=== PATIENT | male | born 1970 | race Caucasian/White ===

== ENCOUNTER 2022-04-08 05:19 | Inpatient (IN) | payer MEDICARE ==
[2022-04-04 10:22] LABS: BASOPHILS % 0.5 % (0.0-1.0); EOSINOPHILS # (AUTO) 0.1 (0.0-0.4); EOSINOPHILS % 2.1 % (0.0-6.0); HEMATOCRIT 39.1 % (38.2-49.6); HEMOGLOBIN 12.5 g/dL (14.0-18.0); LYMPHOCYTES # (AUTO) 0.6 (1.0-3.2); LYMPHOCYTES % 13.1 % (18.0-39.1); MEAN CORPUSCULAR HEMOGLOBIN 34.5 pg (28-32); MONOCYTES # (AUTO) 0.3 (0.2-0.8); MONOCYTES % 7.6 % (4.4-11.3); NEUTROPHILS # (AUTO) 3.2 (2.1-6.9); NEUTROPHILS % 76.2 % (38.7-80.0); PLATELET COUNT 192 x10e3/uL (140-360); RED BLOOD COUNT 3.62 x10e6/uL (4.3-5.7); RED CELL DISTRIBUTION WIDTH 16.4 % (11.7-14.4)
[2022-04-04 10:47] LABS: ANION GAP 12.1 mmol/L (8-16); CALCIUM 8.2 mg/dL (8.4-10.2); CREATININE, SERUM 1.58 mg/dL (0.72-1.25); POTASSIUM 5.1 mmol/L (3.5-5.1)
[~2022-04-08] VITALS: Ht 182.9 cm; Wt 146.3 kg
[~2022-04-08 05:19] MED LIST: AMLODIPINE BESYL5 MG PO; FARXIGA10 MG PO; MAGNESIUM OXID400 MG PO
[2022-04-08] MEDS ORDERED: CARVEDILOL12.5 MG PO (06:16)
[2022-04-08] MEDS ORDERED: NEURONTIN300 MG PO (06:17)
[2022-04-08] MEDS ORDERED: FLOMAX0.4 MG PO (06:18)
[2022-04-08] MEDS ORDERED: ROVASTATIN (06:19)
[2022-04-08] MEDS ORDERED: METFORMIN HCL500 MG PO (06:20)
[2022-04-08] MEDS ORDERED: PIOGLITAZONE HC45 MG PO (06:20)
[2022-04-08] MEDS ORDERED: GLIPIZIDE5 MG PO (06:21)
[2022-04-08] MEDS ORDERED: CLOPIDOGREL75 MG PO (06:21)
[2022-04-08] MEDS ORDERED: TRICOR145 MG PO (06:22)
[2022-04-08] MEDS ORDERED: ASPIRIN325 MG PO (06:23)
[2022-04-08] MEDS ORDERED: CEFAZOLIN SODIUM 2 GM ONE (06:43)
[2022-04-08] MEDS ORDERED: BUPIVACAINE 0.25% 30ML SDV ONE (07:25)
[2022-04-08] MEDS: SODIUM CHLORIDE 0.9% 1000ML 1,000 ML IV SCH ×2 (08:00→16:13)
[2022-04-08] MEDS ORDERED: HYDROCODONE/APAP 7.5MG-325MG 1 EA TAB PO PRN (08:00)
[2022-04-08] MEDS ORDERED: SCOPOLAMINE 1 MG PATCH TOP SCH (08:00)
[2022-04-08] MEDS ORDERED: SUGAMMADEX SODIUM 200 MG/2 ML VIAL IV ONE ×2 (09:42→10:58)
[2022-04-08] MEDS ORDERED: NALOXONE HCL INJ 0.4 MG/ML AMP ONE (09:49)
[2022-04-08] MEDS: ONDANSETRON HCL INJ 2MG/ML 2ML 2 MG/ML VIAL IV PRN ×3 (10:08→18:09)
[2022-04-08] MEDS ORDERED: ONDANSETRON HCL INJ 2MG/ML 2ML 2 MG/ML VIAL ONE ×2 (10:21→12:54)
[2022-04-08] MEDS ORDERED: METOCLOPRAMIDE HCL 10 MG/2ML VIAL ONE (10:25)
[2022-04-08] MEDS: SCOPOLAMINE 1 MG PATCH TOP SCH ×2 (10:30→13:00)
[2022-04-08] MEDS ORDERED: SCOPOLAMINE 1 MG PATCH ONE (10:44)
[2022-04-08] MEDS ORDERED: HYDROMORPHONE 2MG/ML 2 MG/ML ML ONE (10:58)
[2022-04-08] MEDS ORDERED: PROPOFOL IV EMULSION 10 MG/ML 20 ML VIAL ONE (12:54)
[2022-04-08] MEDS ORDERED: ROCURONIUM BROMIDE 10 MG/ML 5ML VIAL IV ONE (12:54)
[2022-04-08] MEDS ORDERED: LIDOCAINE HCL 2% LOCAL INJ 5 ML SDV VIAL INJ ONE (12:54)
[2022-04-08] MEDS ORDERED: POVIDONE IODINE 0.05% 0.05 % ML PO ONE (12:54)
[2022-04-08] MEDS ORDERED: SUCCINYLCHOLINE CHLORIDE 20 MG/ML 10ML VIAL ONE (12:54)
[2022-04-08] MEDS ORDERED: SEVOFLURANE INHAL SOLN 250 ML PEN BTL ONE (12:54)
[2022-04-08] MEDS ORDERED: FENTANYL CITRATE/PF 100MCG/2 ML INJ ONE (13:12)
[2022-04-08] MEDS ORDERED: MIDAZOLAM HCL 2 MG/2 ML VIAL ONE ×2 (13:12→14:10)
[2022-04-08 13:30] VITALS: BP 167/72
[2022-04-08 13:41] VITALS: BP 167/72
[2022-04-08] MEDS: Morphine 2mg Syringe 2 MG/ML SYR IV PRN ×2 (13:45→18:09)
[2022-04-08] MEDS ORDERED: WATER STERILE 10 ML VIAL ONE (14:10)
[2022-04-08] MEDS ORDERED: VECURONIUM BROMIDE FOR INJ 20 MG VIAL ONE (14:10)
[2022-04-08] MEDS ORDERED: ETOMIDATE 2 MG/ML 10 ML INJ IV ONE (14:10)
[2022-04-08 14:20] VITALS: BP 167/72
[2022-04-08 16:47] VITALS: BP 158/65
[2022-04-08] MEDS: CARVEDILOL 12.5 MG TAB PO SCH (17:49)
[2022-04-08 20:00] VITALS: BP_SYST 156; BP_SYST 89; BP_DIAS 40; BP_DIAS 65
[2022-04-08] MEDS: GABAPENTIN 300 MG CAP PO SCH (20:50)
[2022-04-08] MEDS: ENOXAPARIN SOD INJ 40 MG/0.4 ML SYR SC SCH (20:51)
[2022-04-08 21:00] VITALS: BP 156/65
[2022-04-09] VITALS (7 sets, daily range): BP systolic 113–151; BP diastolic 48–73
[2022-04-09] MEDS: SODIUM CHLORIDE 0.9% 1000ML 1,000 ML IV SCH
[2022-04-09] MEDS ORDERED: FUROSEMIDE INJ 10 MG/ML 4 ML VIAL IV ONE ×3 (06:45→12:00)
[2022-04-09 07:28] LABS: BASOPHILS % 0.5 % (0.0-1.0); EOSINOPHILS % 0.1 % (0.0-6.0); HEMATOCRIT 50.9 % (38.2-49.6); HEMOGLOBIN 14.7 g/dL (14.0-18.0); LYMPHOCYTES # (AUTO) 0.3 (1.0-3.2); MEAN CORPUSCULAR HGB CONC 28.9 g/dL (31-35); MEAN CORPUSCULAR VOLUME 110.9 fL (81-99); MONOCYTES # (AUTO) 0.7 (0.2-0.8); MONOCYTES % 8.7 % (4.4-11.3); NEUTROPHILS # (AUTO) 6.5 (2.1-6.9); NEUTROPHILS % 86.3 % (38.7-80.0); RED BLOOD COUNT 4.59 x10e6/uL (4.3-5.7); RED CELL DISTRIBUTION WIDTH 15.3 % (11.7-14.4)
[2022-04-09 07:32] LABS: PLATELET COUNT 254 x10e3/uL (140-360)
[2022-04-09 07:47] LABS: ALBUMIN 2.8 g/dL (3.5-5.0); ALBUMIN/GLOBULIN RATIO 0.7 (0.8-2.0); ANION GAP 16.8 mmol/L (8-16); CALCIUM 8.5 mg/dL (8.4-10.2); CREATININE, SERUM 2.07 mg/dL (0.72-1.25); MAGNESIUM 2.2 MG/DL (1.3-2.1); PHOSPHORUS 6.3 MG/DL (2.3-4.7)
[2022-04-09 08:05] LABS: POTASSIUM 6.8 mmol/L (3.5-5.1)
[2022-04-09] MEDS: ENOXAPARIN SOD INJ 40 MG/0.4 ML SYR SC SCH (08:23)
[2022-04-09 08:42] LABS: PLATELET ESTIMATE ADEQUATE; PLATELET MORPHOLOGY COMMENT NORMAL; RBC MORPHOLOGY COMMENT NORMAL
[2022-04-09 08:43] LABS: POLYCHROMASIA FEW
[2022-04-09] MEDS ORDERED: CLOPIDOGREL BISULFATE 75 MG TAB PO SCH (09:00)
[2022-04-09] MEDS: AMLODIPINE BESYLATE 5 MG TAB PO SCH (09:47)
[2022-04-09] MEDS: FENOFIBRATE 145 MG TAB PO SCH (09:47)
[2022-04-09] MEDS: CARVEDILOL 12.5 MG TAB PO SCH ×2 (09:47→17:00)
[2022-04-09] MEDS: GABAPENTIN 300 MG CAP PO SCH (09:48)
[2022-04-09] MEDS ORDERED: DEXTROSE 50% SYRINGE 50 ML IV PRN (11:45)
[2022-04-09 12:42] LABS: ABG HCO3 24 mmol/L (22-26); ABG PCO2 76 mmHg (35-45); ABG PO2 121 mmHg (80-105); ABG TCO2 26
[2022-04-09] MEDS ORDERED: NOREPINEPHRINE 8 MG/D5W 250 ML 250 ML IV SCH (13:30)
[2022-04-09] MEDS ORDERED: ALBUMIN 25% 25GM 100ML 0.25 GM/ML BTL IV ONE (13:30)
[2022-04-09] MEDS ORDERED: ALBUMIN 25% 25GM 100ML 0 ML ONE (13:34)
[2022-04-09] MEDS ORDERED: NOREPINEPHRINE 8 MG/D5W 250 ML 250 ML ONE (13:34)
[2022-04-09] MEDS ORDERED: ROCURONIUM BROMIDE 0 ML IV ONE (13:37)
[2022-04-09] MEDS ORDERED: ALBUMIN 25% 25GM 100ML 100 ML IV ONE (13:45)
[2022-04-09] MEDS: PROPOFOL IV EMULSION 10MG/ML 100 ML IV PRN ×4 (13:53→23:12)
[2022-04-09] MEDS ORDERED: PROPOFOL IV EMULSION 10MG/ML 100 ML IV PRN (14:00)
[2022-04-09] MEDS ORDERED: SODIUM CHLORIDE 0.9% 1000ML 1,000 ML ONE (14:19)
[2022-04-09] MEDS ORDERED: CALCIUM CHLORIDE 10% 1.36 MEQ/ML 10ML SYR IV STA (15:33)
[2022-04-09] MEDS ORDERED: DEXTROSE 50% SYRINGE 50 ML IV ONE (15:45)
[2022-04-09] MEDS ORDERED: INSULIN REGULAR, HUMAN 100 UNIT/1 ML IV ONE (15:45)
[2022-04-09 16:03] LABS: ABG PCO2 75 mmHg (35-45); ABG PH 7.15 (7.35-7.45); ABG PO2 99 mmHg (80-105)
[2022-04-09 16:04] LABS: ABG HCO3 26 mmol/L (22-26); ABG TCO2 28
[2022-04-09 16:05] LABS: ABG PH 7.25 (7.35-7.45)
[2022-04-09 16:06] LABS: ABG HCO3 22 mmol/L (22-26); ABG PCO2 49 mmHg (35-45); ABG PO2 103 mmHg (80-105); ABG TCO2 23
[2022-04-09] MEDS: INSULIN REGULAR, HUMAN 100 UNIT/1 ML SQ SCH ×2 (16:30→21:00)
[2022-04-09 17:14] LABS: ABG HCO3 20 mmol/L (22-26); ABG PCO2 46 mmHg (35-45); ABG PH 7.25 (7.35-7.45); ABG PO2 91 mmHg (80-105); ABG TCO2 22
[2022-04-09 17:23] LABS: COLOR,URINE YELLOW (YELLOW); KETONES,URINE 2+ (NEGATIVE); LEUKOCYTE ESTERASE ,URINE NEGATIVE (NEGATIVE); NITRITE,URINE NEGATIVE (NEGATIVE); PROTEIN,URINE DIPSTICK >=300 (NEGATIVE); URINE UROBILINOGEN 0.2 mg/dL (0.2 - 1)
[2022-04-09 17:24] LABS: CLARITY,URINE SL CLOUDY (CLEAR)
[2022-04-09 17:30] LABS: BACTERIA,URINE MODERATE /HPF; EPITHELIAL CELLS,URINE FEW /LPF; HYALINE CASTS 0-1 (0-1); RBC,URINE 21-50 /HPF (0-5); RENAL EPITHELIAL CELLS,URINE FEW; TRANSITIONAL EPI CELLS,URINE MODERATE
[2022-04-09 17:31] LABS: AMORPHOUS SEDIMENT,URINE MANY (FEW); MUCUS,URINE FEW (RARE)
[2022-04-09] MEDS: HEPARIN SOD (PORCINE) 5,000 UNIT/ML VIAL SC SCH (20:59)
[2022-04-09] MEDS ORDERED: FUROSEMIDE INJ 10 MG/ML 4 ML VIAL IV SCH (21:00)
[2022-04-09] MEDS: MIDAZOLAM HCL 2 MG/2 ML VIAL IV PRN (23:02)
[2022-04-10] VITALS (32 sets, daily range): BP systolic 83–188; BP diastolic 39–69
[2022-04-10] MEDS: PROPOFOL IV EMULSION 10MG/ML 100 ML IV PRN ×7 (02:22→23:41)
[2022-04-10] MEDS: MIDAZOLAM HCL 2 MG/2 ML VIAL IV PRN ×4 (05:10→12:15)
[2022-04-10 06:31] LABS: BASOPHILS % 0.2 % (0.0-1.0); EOSINOPHILS % 0.3 % (0.0-6.0); HEMATOCRIT 37.6 % (38.2-49.6); HEMOGLOBIN 11.4 g/dL (14.0-18.0); LYMPHOCYTES # (AUTO) 0.4 (1.0-3.2); LYMPHOCYTES % 7.4 % (18.0-39.1); MEAN CORPUSCULAR HEMOGLOBIN 30.8 pg (28-32); MEAN CORPUSCULAR HGB CONC 30.3 g/dL (31-35); MEAN CORPUSCULAR VOLUME 101.6 fL (81-99); MONOCYTES # (AUTO) 0.5 (0.2-0.8); MONOCYTES % 8.7 % (4.4-11.3); NEUTROPHILS % 83.2 % (38.7-80.0); PLATELET COUNT 222 x10e3/uL (140-360); RED CELL DISTRIBUTION WIDTH 15.2 % (11.7-14.4)
[2022-04-10 07:02] LABS: ALBUMIN 2.1 g/dL (3.5-5.0); ALBUMIN/GLOBULIN RATIO 0.6 (0.8-2.0); ANION GAP 19.6 mmol/L (8-16); CALCIUM 8.5 mg/dL (8.4-10.2); CREATININE, SERUM 2.41 mg/dL (0.72-1.25); POTASSIUM 4.6 mmol/L (3.5-5.1)
[2022-04-10] MEDS: INSULIN REGULAR, HUMAN 100 UNIT/1 ML SQ SCH ×4 (07:32→21:00)
[2022-04-10] MEDS: HEPARIN SOD (PORCINE) 5,000 UNIT/ML VIAL SC SCH ×2 (08:11→21:18)
[2022-04-10] MEDS: CARVEDILOL 12.5 MG TAB PO SCH ×2 (09:00→17:00)
[2022-04-10] MEDS: CLOPIDOGREL BISULFATE 75 MG TAB PO SCH (09:00)
[2022-04-10] MEDS: FENOFIBRATE 145 MG TAB PO SCH (09:00)
[2022-04-10] MEDS: AMLODIPINE BESYLATE 5 MG TAB PO SCH (09:00)
[2022-04-10 09:04] LABS: ABG HCO3 19 mmol/L (22-26); ABG PCO2 32 mmHg (35-45); ABG PH 7.39 (7.35-7.45); ABG PO2 193 mmHg (80-105)
[2022-04-10 09:05] LABS: ABG TCO2 20
[2022-04-10] MEDS ORDERED: Vancomycin IV 1 GM in SODIUM CHLORIDE 0.9% 250ML 250 ML IV ONE (10:00)
[2022-04-10] MEDS ORDERED: SODIUM CHLORIDE 0.9% 250ML 250 ML ONE (10:52)
[2022-04-10] MEDS ORDERED: ALBUMIN 25% 25GM 100ML 200 ML ONE (11:27)
[2022-04-10] MEDS ORDERED: ALBUMIN 25% 25GM 100ML 0.25 GM/ML BTL IV ONE (12:00)
[2022-04-10] MEDS: FENTANYL 2000MCG/NS 250 250 ML IV PRN (12:16)
[2022-04-10] MEDS ORDERED: ALBUMIN 25% 25GM 100ML 200 ML IV ONE (12:30)
[2022-04-10 13:18] LABS: ABG HCO3 21 mmol/L (22-26); ABG PCO2 35 mmHg (35-45); ABG PH 7.38 (7.35-7.45); ABG PO2 104 mmHg (80-105); ABG TCO2 22
[2022-04-10 15:18] LABS: ABG PH 7.31 (7.35-7.45)
[2022-04-10 15:19] LABS: ABG HCO3 22 mmol/L (22-26); ABG PCO2 45 mmHg (35-45); ABG PO2 75 mmHg (80-105); ABG TCO2 24
[2022-04-10] MEDS ORDERED: LACTATED RINGER'S 1,000 ML INJ ONE ×2 (17:00→18:30)
[2022-04-10] MEDS ORDERED: LACTATED RINGER'S 1,000 ML ONE (17:25)
[2022-04-11] VITALS (92 sets, daily range): BP systolic 115–197; BP diastolic 51–100
[2022-04-11] MEDS: PROPOFOL IV EMULSION 10MG/ML 100 ML IV PRN ×8 (03:05→22:58)
[2022-04-11 06:37] LABS: BASOPHILS % 0.6 % (0.0-1.0); EOSINOPHILS # (AUTO) 0.2 (0.0-0.4); EOSINOPHILS % 4.2 % (0.0-6.0); HEMATOCRIT 37.1 % (38.2-49.6); HEMOGLOBIN 11.1 g/dL (14.0-18.0); LYMPHOCYTES # (AUTO) 0.4 (1.0-3.2); LYMPHOCYTES % 11.4 % (18.0-39.1); MEAN CORPUSCULAR HGB CONC 29.9 g/dL (31-35); MEAN CORPUSCULAR VOLUME 103.6 fL (81-99); MONOCYTES # (AUTO) 0.4 (0.2-0.8); MONOCYTES % 11.1 % (4.4-11.3); NEUTROPHILS # (AUTO) 2.6 (2.1-6.9); NEUTROPHILS % 72.4 % (38.7-80.0); PLATELET COUNT 208 x10e3/uL (140-360); RED BLOOD COUNT 3.58 x10e6/uL (4.3-5.7); RED CELL DISTRIBUTION WIDTH 15.5 % (11.7-14.4)
[2022-04-11 07:10] LABS: ALBUMIN 2.3 g/dL (3.5-5.0); ALBUMIN/GLOBULIN RATIO 0.8 (0.8-2.0); ANION GAP 19.3 mmol/L (8-16); CALCIUM 8.2 mg/dL (8.4-10.2); CREATININE, SERUM 2.35 mg/dL (0.72-1.25); POTASSIUM 4.3 mmol/L (3.5-5.1)
[2022-04-11] MEDS ORDERED: Vancomycin IV 1 GM in SODIUM CHLORIDE 0.9% 250ML 250 ML IV ONE (07:15)
[2022-04-11] MEDS: INSULIN REGULAR, HUMAN 100 UNIT/1 ML SQ SCH ×4 (07:30→21:00)
[2022-04-11] MEDS: FENTANYL 2000MCG/NS 250 250 ML IV PRN (07:35)
[2022-04-11 08:16] LABS: ABG HCO3 21 mmol/L (22-26); ABG PCO2 47 mmHg (35-45); ABG PH 7.27 (7.35-7.45); ABG PO2 156 mmHg (80-105); ABG TCO2 23
[2022-04-11] MEDS: HEPARIN SOD (PORCINE) 5,000 UNIT/ML VIAL SC SCH ×2 (08:35→21:11)
[2022-04-11] MEDS: AMLODIPINE BESYLATE 5 MG TAB PO SCH (09:00)
[2022-04-11] MEDS: FENOFIBRATE 145 MG TAB PO SCH (09:00)
[2022-04-11] MEDS: CARVEDILOL 12.5 MG TAB PO SCH ×2 (09:00→16:18)
[2022-04-11] MEDS: CLOPIDOGREL BISULFATE 75 MG TAB PO SCH (09:00)
[2022-04-11 09:29] LABS: ABG PCO2 37 mmHg (35-45); ABG PH 7.34 (7.35-7.45); ABG PO2 159 mmHg (80-105)
[2022-04-11 09:30] LABS: ABG HCO3 20 mmol/L (22-26); ABG TCO2 21
[2022-04-11] MEDS ORDERED: SODIUM CHLORIDE 0.9% 1000ML 1,000 ML IV ONE (11:30)
[2022-04-11] MEDS: HYDRALAZINE HCL 20 MG/ML VIAL IV PRN ×2 (13:49→23:11)
[2022-04-11 16:28] LABS: ABG HCO3 18 mmol/L (22-26); ABG PCO2 34 mmHg (35-45); ABG PH 7.33 (7.35-7.45); ABG PO2 80 mmHg (80-105); ABG TCO2 19
[2022-04-11] MEDS ORDERED: LACTATED RINGER'S 1,000 ML INJ ONE (17:45)
[2022-04-11] MEDS ORDERED: FUROSEMIDE INJ 10 MG/ML 4 ML VIAL IV ONE (18:00)
[2022-04-11] MEDS: HYDRALAZINE HCL 20 MG/ML VIAL IV SCH (21:11)
[2022-04-12] VITALS (45 sets, daily range): BP systolic 145–196; BP diastolic 47–65
[2022-04-12] MEDS: PROPOFOL IV EMULSION 10MG/ML 100 ML IV PRN ×11 (01:01→22:54)
[2022-04-12] MEDS: HYDRALAZINE HCL 20 MG/ML VIAL IV PRN ×3 (01:16→16:28)
[2022-04-12] MEDS ORDERED: LACTATED RINGER'S 1,000 ML ONE (01:21)
[2022-04-12] MEDS: MIDAZOLAM HCL 2 MG/2 ML VIAL IV PRN (01:49)
[2022-04-12] MEDS: FENTANYL 2000MCG/NS 250 250 ML IV PRN (05:47)
[2022-04-12 05:48] LABS: BASOPHILS % 0.5 % (0.0-1.0); EOSINOPHILS # (AUTO) 0.2 (0.0-0.4); EOSINOPHILS % 3.7 % (0.0-6.0); HEMATOCRIT 38.9 % (38.2-49.6); HEMOGLOBIN 11.5 g/dL (14.0-18.0); LYMPHOCYTES # (AUTO) 0.3 (1.0-3.2); LYMPHOCYTES % 7.9 % (18.0-39.1); MEAN CORPUSCULAR HEMOGLOBIN 31.2 pg (28-32); MEAN CORPUSCULAR HGB CONC 29.6 g/dL (31-35); MEAN CORPUSCULAR VOLUME 105.4 fL (81-99); MONOCYTES # (AUTO) 0.5 (0.2-0.8); MONOCYTES % 11.3 % (4.4-11.3); NEUTROPHILS # (AUTO) 3.1 (2.1-6.9); NEUTROPHILS % 76.4 % (38.7-80.0); PLATELET COUNT 220 x10e3/uL (140-360); RED BLOOD COUNT 3.69 x10e6/uL (4.3-5.7); RED CELL DISTRIBUTION WIDTH 15.4 % (11.7-14.4)
[2022-04-12] MEDS: HYDRALAZINE HCL 20 MG/ML VIAL IV SCH ×3 (05:48→21:08)
[2022-04-12 06:15] LABS: ALBUMIN 2.2 g/dL (3.5-5.0); ALBUMIN/GLOBULIN RATIO 0.6 (0.8-2.0); ANION GAP 22.2 mmol/L (8-16); CALCIUM 8.4 mg/dL (8.4-10.2); CREATININE, SERUM 1.79 mg/dL (0.72-1.25); POTASSIUM 4.2 mmol/L (3.5-5.1)
[2022-04-12] MEDS: INSULIN REGULAR, HUMAN 100 UNIT/1 ML SQ SCH ×4 (06:56→21:10)
[2022-04-12 07:54] LABS: ABG HCO3 16 mmol/L (22-26); ABG PCO2 33 mmHg (35-45); ABG PH 7.29 (7.35-7.45); ABG PO2 90 mmHg (80-105); ABG TCO2 17
[2022-04-12] MEDS: CARVEDILOL 12.5 MG TAB PO SCH ×2 (08:03→16:09)
[2022-04-12] MEDS: HEPARIN SOD (PORCINE) 5,000 UNIT/ML VIAL SC SCH ×2 (08:03→20:39)
[2022-04-12] MEDS: CLOPIDOGREL BISULFATE 75 MG TAB PO SCH (08:04)
[2022-04-12] MEDS: FENOFIBRATE 145 MG TAB PO SCH (08:04)
[2022-04-12] MEDS: AMLODIPINE BESYLATE 5 MG TAB PO SCH (08:04)
[2022-04-12] MEDS ORDERED: SODIUM BICARBONATE 8.4% 50 ML in SODIUM CHLORIDE 0.45% 1,000 ML IV ONE (08:30)
[2022-04-12] MEDS: Vancomycin IV 1 GM in SODIUM CHLORIDE 0.9% 250ML 250 ML IV SCH ×2 (11:26→22:32)
[2022-04-12 15:54] LABS: BASOPHILS % 0.2 % (0.0-1.0); EOSINOPHILS # (AUTO) 0.1 (0.0-0.4); HEMOGLOBIN 11.4 g/dL (14.0-18.0); LYMPHOCYTES # (AUTO) 0.2 (1.0-3.2); LYMPHOCYTES % 5.3 % (18.0-39.1); MEAN CORPUSCULAR VOLUME 103.3 fL (81-99); MONOCYTES # (AUTO) 0.5 (0.2-0.8); MONOCYTES % 10.6 % (4.4-11.3); NEUTROPHILS # (AUTO) 3.5 (2.1-6.9); NEUTROPHILS % 80.7 % (38.7-80.0); PLATELET COUNT 208 x10e3/uL (140-360); RED BLOOD COUNT 3.68 x10e6/uL (4.3-5.7); RED CELL DISTRIBUTION WIDTH 15.2 % (11.7-14.4)
[2022-04-12 16:17] LABS: ALBUMIN 2.1 g/dL (3.5-5.0); ALBUMIN/GLOBULIN RATIO 0.6 (0.8-2.0); ANION GAP 21.2 mmol/L (8-16); CALCIUM 8.5 mg/dL (8.4-10.2); CREATININE, SERUM 1.79 mg/dL (0.72-1.25); POTASSIUM 4.2 mmol/L (3.5-5.1)
[2022-04-12 16:18] LABS: ALBUMIN 2.1 g/dL (3.5-5.0); BILIRUBIN,DIRECT 0.2 mg/dL (0.0-0.5); MAGNESIUM 1.7 MG/DL (1.3-2.1); PHOSPHORUS 3.8 MG/DL (2.3-4.7)
[2022-04-12] MEDS: SODIUM BICARBONATE 8.4% 50 ML in SODIUM CHLORIDE 0.45% 1,000 ML IV SCH (17:47)
[2022-04-12] MEDS ORDERED: CLONIDINE HCL 0.1 MG/24 HR 1 EA PATCH TOP SCH (18:30)
[2022-04-12] MEDS: CENTRAL TPN FORMULA 1 BAG IV SCH (20:15)
[2022-04-13] VITALS (24 sets, daily range): BP systolic 146–183; BP diastolic 53–65
[2022-04-13] MEDS: PROPOFOL IV EMULSION 10MG/ML 100 ML IV PRN ×10 (01:02→21:17)
[2022-04-13] MEDS: HYDRALAZINE HCL 20 MG/ML VIAL IV PRN ×2 (01:25→08:16)
[2022-04-13] MEDS: SODIUM BICARBONATE 8.4% 50 ML in SODIUM CHLORIDE 0.45% 1,000 ML IV SCH (04:40)
[2022-04-13] MEDS: HYDRALAZINE HCL 20 MG/ML VIAL IV SCH ×3 (05:14→22:45)
[2022-04-13 06:39] LABS: BASOPHILS % 0.3 % (0.0-1.0); EOSINOPHILS # (AUTO) 0.1 (0.0-0.4); HEMATOCRIT 35.8 % (38.2-49.6); LYMPHOCYTES # (AUTO) 0.3 (1.0-3.2); LYMPHOCYTES % 7.9 % (18.0-39.1); MEAN CORPUSCULAR HEMOGLOBIN 31.2 pg (28-32); MEAN CORPUSCULAR HGB CONC 30.7 g/dL (31-35); MEAN CORPUSCULAR VOLUME 101.4 fL (81-99); MONOCYTES # (AUTO) 0.4 (0.2-0.8); MONOCYTES % 12.1 % (4.4-11.3); NEUTROPHILS # (AUTO) 2.8 (2.1-6.9); NEUTROPHILS % 76.4 % (38.7-80.0); PLATELET COUNT 209 x10e3/uL (140-360); RED BLOOD COUNT 3.53 x10e6/uL (4.3-5.7); RED CELL DISTRIBUTION WIDTH 15.2 % (11.7-14.4)
[2022-04-13 07:05] LABS: ALBUMIN/GLOBULIN RATIO 0.6 (0.8-2.0); ANION GAP 13.8 mmol/L (8-16); CALCIUM 8.1 mg/dL (8.4-10.2); CREATININE, SERUM 1.63 mg/dL (0.72-1.25); POTASSIUM 3.8 mmol/L (3.5-5.1)
[2022-04-13] MEDS: INSULIN REGULAR, HUMAN 100 UNIT/1 ML SQ SCH ×4 (07:16→21:10)
[2022-04-13] MEDS: MUPIROCIN 2% OINT 22 GM TUBE TOP SCH ×2 (07:30→19:34)
[2022-04-13] MEDS: AMLODIPINE BESYLATE 5 MG TAB PO SCH (08:12)
[2022-04-13] MEDS: CARVEDILOL 12.5 MG TAB PO SCH ×2 (08:12→16:35)
[2022-04-13] MEDS: CLOPIDOGREL BISULFATE 75 MG TAB PO SCH (08:13)
[2022-04-13] MEDS: FENOFIBRATE 145 MG TAB PO SCH (08:13)
[2022-04-13] MEDS: HEPARIN SOD (PORCINE) 5,000 UNIT/ML VIAL SC SCH ×2 (08:14→20:40)
[2022-04-13 08:36] LABS: ABG PCO2 35 mmHg (35-45); ABG PH 7.39 (7.35-7.45)
[2022-04-13 08:37] LABS: ABG HCO3 21 mmol/L (22-26); ABG PO2 93 mmHg (80-105); ABG TCO2 22
[2022-04-13] MEDS: CIPROFLOXACIN 400 MG/D5W 200ML 200 ML IV SCH ×2 (09:22→20:29)
[2022-04-13] MEDS: FENTANYL 2000MCG/NS 250 250 ML IV PRN (10:04)
[2022-04-13] MEDS: Vancomycin IV 1 GM in SODIUM CHLORIDE 0.9% 250ML 250 ML IV SCH ×2 (10:26→23:29)
[2022-04-13 12:16] LABS: ABG HCO3 23 mmol/L (22-26); ABG PCO2 38 mmHg (35-45); ABG PH 7.39 (7.35-7.45); ABG PO2 91 mmHg (80-105); ABG TCO2 24
[2022-04-13] MEDS: LABETALOL HCL 5 MG/ML 20ML VIAL IV PRN (16:36)
[2022-04-13] MEDS: CENTRAL TPN FORMULA 1 BAG IV SCH (20:15)
[2022-04-13] MEDS: MIDAZOLAM HCL 2 MG/2 ML VIAL IV PRN (21:09)
[2022-04-14] VITALS (61 sets, daily range): BP systolic 97–204; BP diastolic 47–74
[2022-04-14] MEDS: PROPOFOL IV EMULSION 10MG/ML 100 ML IV PRN ×10 (02:42→21:57)
[2022-04-14] MEDS: HYDRALAZINE HCL 20 MG/ML VIAL IV SCH ×3 (05:52→21:22)
[2022-04-14 06:27] LABS: BASOPHILS % 0.6 % (0.0-1.0); EOSINOPHILS # (AUTO) 0.1 (0.0-0.4); EOSINOPHILS % 2.8 % (0.0-6.0); HEMATOCRIT 33.9 % (38.2-49.6); HEMOGLOBIN 10.7 g/dL (14.0-18.0); LYMPHOCYTES # (AUTO) 0.5 (1.0-3.2); LYMPHOCYTES % 13.1 % (18.0-39.1); MEAN CORPUSCULAR HEMOGLOBIN 31.3 pg (28-32); MEAN CORPUSCULAR HGB CONC 31.6 g/dL (31-35); MEAN CORPUSCULAR VOLUME 99.1 fL (81-99); MONOCYTES # (AUTO) 0.5 (0.2-0.8); MONOCYTES % 13.6 % (4.4-11.3); NEUTROPHILS # (AUTO) 2.4 (2.1-6.9); NEUTROPHILS % 69.3 % (38.7-80.0); PLATELET COUNT 195 x10e3/uL (140-360); RED BLOOD COUNT 3.42 x10e6/uL (4.3-5.7); RED CELL DISTRIBUTION WIDTH 14.9 % (11.7-14.4)
[2022-04-14 06:49] LABS: ALBUMIN 1.8 g/dL (3.5-5.0); ALBUMIN/GLOBULIN RATIO 0.5 (0.8-2.0); ANION GAP 11.8 mmol/L (8-16); CALCIUM 8.2 mg/dL (8.4-10.2); CREATININE, SERUM 1.62 mg/dL (0.72-1.25); POTASSIUM 3.8 mmol/L (3.5-5.1)
[2022-04-14] MEDS: HEPARIN SOD (PORCINE) 5,000 UNIT/ML VIAL SC SCH ×2 (08:02→20:04)
[2022-04-14] MEDS: INSULIN REGULAR, HUMAN 100 UNIT/1 ML SQ SCH ×4 (08:02→20:03)
[2022-04-14] MEDS: CIPROFLOXACIN 400 MG/D5W 200ML 200 ML IV SCH ×2 (08:03→21:06)
[2022-04-14] MEDS: MUPIROCIN 2% OINT 22 GM TUBE TOP SCH ×2 (08:03→16:59)
[2022-04-14] MEDS: CLOPIDOGREL BISULFATE 75 MG TAB PO SCH (08:04)
[2022-04-14] MEDS: CARVEDILOL 12.5 MG TAB PO SCH ×2 (08:04→16:59)
[2022-04-14] MEDS: NIFEDIPINE CR 30 MG TAB PO SCH (08:04)
[2022-04-14] MEDS: FENOFIBRATE 145 MG TAB PO SCH (08:04)
[2022-04-14 09:01] LABS: ABG HCO3 22 mmol/L (22-26); ABG PCO2 38 mmHg (35-45); ABG PH 7.37 (7.35-7.45); ABG PO2 99 mmHg (80-105); ABG TCO2 23
[2022-04-14] MEDS: INSULIN GLARGINE 100 UNITS/ML VIAL SQ SCH ×2 (09:25→20:03)
[2022-04-14] MEDS: LABETALOL HCL 5 MG/ML 20ML VIAL IV PRN (09:27)
[2022-04-14] MEDS: HYDRALAZINE HCL 20 MG/ML VIAL IV PRN (09:58)
[2022-04-14 10:48] LABS: ABG HCO3 23 mmol/L (22-26); ABG PCO2 47 mmHg (35-45); ABG PO2 101 mmHg (80-105); ABG TCO2 24
[2022-04-14] MEDS: Vancomycin IV 1 GM in SODIUM CHLORIDE 0.9% 250ML 250 ML IV SCH ×2 (11:11→23:11)
[2022-04-14] MEDS: FENTANYL 2000MCG/NS 250 250 ML IV PRN (11:41)
[2022-04-14] MEDS ORDERED: CENTRAL TPN FORMULA 1 BAG IV SCH (20:00)
[2022-04-14] MEDS: MIDAZOLAM HCL 2 MG/2 ML VIAL IV PRN (23:47)
[2022-04-15] VITALS (59 sets, daily range): BP systolic 67–262; BP diastolic 47–103
[2022-04-15] MEDS: PROPOFOL IV EMULSION 10MG/ML 100 ML IV PRN ×5 (02:17→12:49)
[2022-04-15] MEDS ORDERED: FUROSEMIDE INJ 10 MG/ML 4 ML VIAL IV ONE ×2 (05:45→10:30)
[2022-04-15] MEDS: HYDRALAZINE HCL 20 MG/ML VIAL IV SCH ×4 (06:00→22:00)
[2022-04-15 06:58] LABS: BASOPHILS % 0.2 % (0.0-1.0); EOSINOPHILS # (AUTO) 0.1 (0.0-0.4); EOSINOPHILS % 0.5 % (0.0-6.0); HEMOGLOBIN 11.3 g/dL (14.0-18.0); LYMPHOCYTES # (AUTO) 0.1 (1.0-3.2); LYMPHOCYTES % 1.4 % (18.0-39.1); MEAN CORPUSCULAR HEMOGLOBIN 30.8 pg (28-32); MEAN CORPUSCULAR HGB CONC 29.7 g/dL (31-35); MEAN CORPUSCULAR VOLUME 103.5 fL (81-99); MONOCYTES # (AUTO) 0.7 (0.2-0.8); MONOCYTES % 7.7 % (4.4-11.3); NEUTROPHILS # (AUTO) 8.5 (2.1-6.9); NEUTROPHILS % 89.8 % (38.7-80.0); PLATELET COUNT 201 x10e3/uL (140-360); RED BLOOD COUNT 3.67 x10e6/uL (4.3-5.7)
[2022-04-15 07:22] LABS: ALBUMIN 1.8 g/dL (3.5-5.0); ALBUMIN/GLOBULIN RATIO 0.5 (0.8-2.0); ANION GAP 12.8 mmol/L (8-16); CALCIUM 8.5 mg/dL (8.4-10.2); CREATININE, SERUM 1.94 mg/dL (0.72-1.25)
[2022-04-15 07:35] LABS: POTASSIUM 4.8 mmol/L (3.5-5.1)
[2022-04-15] MEDS ORDERED: DEXTROSE 50% SYRINGE 50 ML IV PRN (08:15)
[2022-04-15] MEDS: HYDRALAZINE HCL 20 MG/ML VIAL IV PRN (08:24)
[2022-04-15] MEDS: FENOFIBRATE 145 MG TAB PO SCH (09:00)
[2022-04-15] MEDS: CARVEDILOL 12.5 MG TAB PO SCH ×2 (09:00→16:29)
[2022-04-15] MEDS: LABETALOL HCL 5 MG/ML 20ML VIAL IV PRN ×2 (09:00→10:33)
[2022-04-15] MEDS: CLOPIDOGREL BISULFATE 75 MG TAB PO SCH (09:00)
[2022-04-15] MEDS: NIFEDIPINE CR 30 MG TAB PO SCH (09:00)
[2022-04-15] MEDS: HEPARIN SOD (PORCINE) 5,000 UNIT/ML VIAL SC SCH ×2 (09:18→20:13)
[2022-04-15] MEDS: MUPIROCIN 2% OINT 22 GM TUBE TOP SCH ×2 (09:19→19:41)
[2022-04-15] MEDS: INSULIN REGULAR, HUMAN 3ML VL 100 UNIT in SODIUM CHLORIDE 0.9% 99 ML IV SCH ×2 (09:21)
[2022-04-15] MEDS: CIPROFLOXACIN 400 MG/D5W 200ML 200 ML IV SCH ×2 (09:49→20:14)
[2022-04-15] MEDS: FENTANYL 2000MCG/NS 250 250 ML IV PRN (11:10)
[2022-04-15 11:50] LABS: ABG PCO2 47 mmHg (35-45); ABG PH 7.26 (7.35-7.45)
[2022-04-15 11:51] LABS: ABG HCO3 21 mmol/L (22-26); ABG PO2 77 mmHg (80-105); ABG TCO2 22
[2022-04-15 11:53] LABS: ABG PCO2 44 mmHg (35-45); ABG PH 7.28 (7.35-7.45); ABG PO2 93 mmHg (80-105)
[2022-04-15 11:54] LABS: ABG HCO3 21 mmol/L (22-26); ABG TCO2 22
[2022-04-15] MEDS: FUROSEMIDE INJ 100 MG in SODIUM CHLORIDE 0.9% 90 ML IV SCH ×2 (17:01→17:16)
[2022-04-15] MEDS: CENTRAL TPN FORMULA 1 BAG IV SCH (20:07)
[2022-04-16] VITALS (91 sets, daily range): BP systolic 100–180; BP diastolic 48–86
[2022-04-16] MEDS: PROPOFOL IV EMULSION 10MG/ML 100 ML IV PRN ×6 (00:30→21:55)
[2022-04-16] MEDS: HYDRALAZINE HCL 20 MG/ML VIAL IV SCH (06:00)
[2022-04-16] MEDS: FENTANYL 2000MCG/NS 250 250 ML IV PRN (06:07)
[2022-04-16] MEDS: INSULIN REGULAR, HUMAN 3ML VL 100 UNIT in SODIUM CHLORIDE 0.9% 99 ML IV SCH ×2 (06:08)
[2022-04-16 06:55] LABS: BASOPHILS % 0.3 % (0.0-1.0); EOSINOPHILS # (AUTO) 0.1 (0.0-0.4); EOSINOPHILS % 1.1 % (0.0-6.0); HEMOGLOBIN 10.8 g/dL (14.0-18.0); LYMPHOCYTES # (AUTO) 0.4 (1.0-3.2); LYMPHOCYTES % 6.9 % (18.0-39.1); MEAN CORPUSCULAR HEMOGLOBIN 30.6 pg (28-32); MEAN CORPUSCULAR HGB CONC 29.2 g/dL (31-35); MEAN CORPUSCULAR VOLUME 104.8 fL (81-99); MONOCYTES # (AUTO) 0.8 (0.2-0.8); MONOCYTES % 12.2 % (4.4-11.3); NEUTROPHILS # (AUTO) 4.8 (2.1-6.9); NEUTROPHILS % 77.7 % (38.7-80.0); PLATELET COUNT 204 x10e3/uL (140-360); RED BLOOD COUNT 3.53 x10e6/uL (4.3-5.7); RED CELL DISTRIBUTION WIDTH 15.2 % (11.7-14.4)
[2022-04-16 07:32] LABS: ALBUMIN 1.7 g/dL (3.5-5.0); ALBUMIN/GLOBULIN RATIO 0.4 (0.8-2.0); ANION GAP 14.9 mmol/L (8-16); CALCIUM 8.5 mg/dL (8.4-10.2); CREATININE, SERUM 2.68 mg/dL (0.72-1.25); POTASSIUM 4.9 mmol/L (3.5-5.1)
[2022-04-16 08:02] LABS: ABG HCO3 20 mmol/L (22-26); ABG PCO2 57 mmHg (35-45); ABG PH 7.16 (7.35-7.45); ABG PO2 92 mmHg (80-105); ABG TCO2 22
[2022-04-16] MEDS: MUPIROCIN 2% OINT 22 GM TUBE TOP SCH ×2 (08:19→20:00)
[2022-04-16] MEDS: Vancomycin IV 1 GM in SODIUM CHLORIDE 0.9% 250ML 250 ML IV SCH (08:20)
[2022-04-16] MEDS: CIPROFLOXACIN 400 MG/D5W 200ML 200 ML IV SCH ×2 (08:20→20:02)
[2022-04-16] MEDS: HEPARIN SOD (PORCINE) 5,000 UNIT/ML VIAL SC SCH (08:28)
[2022-04-16 11:07] LABS: ABG HCO3 19 mmol/L (22-26); ABG PCO2 45 mmHg (35-45); ABG PH 7.23 (7.35-7.45); ABG PO2 108 mmHg (80-105); ABG TCO2 20
[2022-04-16] MEDS: FUROSEMIDE INJ 100 MG in SODIUM CHLORIDE 0.9% 90 ML IV SCH (11:14)
[2022-04-16] MEDS: NYSTATIN 15 GM POWDER UD BTL TOP SCH ×2 (11:15→20:00)
[2022-04-16] MEDS ORDERED: HEPARIN SOD (PORCINE) 1000 UNIT/ML SDV IV PRN (11:45)
[2022-04-16] MEDS ORDERED: ALBUMIN 25% 12.5GM 0.25 GM/ML BTL IV PRN (11:45)
[2022-04-16] MEDS ORDERED: SODIUM CHLORIDE 0.9% 1000ML 2,000 ML IV PRN (11:45)
[2022-04-16] MEDS ORDERED: MANNITOL 20% IV PRN (12:00)
[2022-04-16] MEDS: SODIUM CHLORIDE 0.9% 250ML IRRIG IR SCH ×2 (14:15→18:15)
[2022-04-16] MEDS: CENTRAL TPN FORMULA 1 BAG IV SCH (20:11)
[2022-04-16] MEDS: HYDRALAZINE HCL 20 MG/ML VIAL IV PRN (20:14)
[2022-04-17] VITALS (89 sets, daily range): BP systolic 125–189; BP diastolic 56–83
[2022-04-17] MEDS: HYDRALAZINE HCL 20 MG/ML VIAL IV PRN ×3 (01:11→12:58)
[2022-04-17] MEDS: PROPOFOL IV EMULSION 10MG/ML 100 ML IV PRN ×6 (03:00→21:31)
[2022-04-17] MEDS: FENTANYL 2000MCG/NS 250 250 ML IV PRN ×2 (03:09→22:26)
[2022-04-17] MEDS: SODIUM CHLORIDE 0.9% 250ML IRRIG IR SCH ×3 (06:15→22:26)
[2022-04-17 06:43] LABS: BASOPHILS % 0.4 % (0.0-1.0); EOSINOPHILS # (AUTO) 0.2 (0.0-0.4); EOSINOPHILS % 3.8 % (0.0-6.0); HEMATOCRIT 34.4 % (38.2-49.6); HEMOGLOBIN 10.6 g/dL (14.0-18.0); LYMPHOCYTES # (AUTO) 0.5 (1.0-3.2); LYMPHOCYTES % 11.2 % (18.0-39.1); MEAN CORPUSCULAR HGB CONC 30.8 g/dL (31-35); MEAN CORPUSCULAR VOLUME 100.6 fL (81-99); MONOCYTES # (AUTO) 0.7 (0.2-0.8); MONOCYTES % 15.3 % (4.4-11.3); NEUTROPHILS # (AUTO) 3.1 (2.1-6.9); NEUTROPHILS % 65.7 % (38.7-80.0); PLATELET COUNT 234 x10e3/uL (140-360); RED BLOOD COUNT 3.42 x10e6/uL (4.3-5.7)
[2022-04-17 07:11] LABS: ALBUMIN 1.6 g/dL (3.5-5.0); ALBUMIN/GLOBULIN RATIO 0.4 (0.8-2.0); ANION GAP 13.8 mmol/L (8-16); CALCIUM 8.5 mg/dL (8.4-10.2); CREATININE, SERUM 2.3 mg/dL (0.72-1.25); POTASSIUM 3.8 mmol/L (3.5-5.1)
[2022-04-17] MEDS: FUROSEMIDE INJ 100 MG in SODIUM CHLORIDE 0.9% 90 ML IV SCH (07:54)
[2022-04-17] MEDS: INSULIN REGULAR, HUMAN 3ML VL 100 UNIT in SODIUM CHLORIDE 0.9% 99 ML IV SCH ×4 (07:55→21:39)
[2022-04-17 08:22] LABS: ABG HCO3 22 mmol/L (22-26); ABG PCO2 41 mmHg (35-45); ABG PH 7.35 (7.35-7.45); ABG PO2 93 mmHg (80-105)
[2022-04-17 08:23] LABS: ABG TCO2 23
[2022-04-17] MEDS: Vancomycin IV 1 GM in SODIUM CHLORIDE 0.9% 250ML 250 ML IV SCH (11:52)
[2022-04-17] MEDS: NYSTATIN 15 GM POWDER UD BTL TOP SCH ×2 (11:53→17:14)
[2022-04-17] MEDS: MUPIROCIN 2% OINT 22 GM TUBE TOP SCH ×2 (11:53→19:51)
[2022-04-17] MEDS: CIPROFLOXACIN 400 MG/D5W 200ML 200 ML IV SCH ×2 (11:53→19:52)
[2022-04-17 16:38] LABS: ABG PCO2 42 mmHg (35-45); ABG PH 7.39 (7.35-7.45)
[2022-04-17 16:39] LABS: ABG HCO3 26 mmol/L (22-26); ABG PO2 90 mmHg (80-105); ABG TCO2 27
[2022-04-17] MEDS: LABETALOL HCL 5 MG/ML 20ML VIAL IV PRN (17:15)
[2022-04-17] MEDS: CENTRAL TPN FORMULA 1 BAG IV SCH (20:00)
[2022-04-17] MEDS: HYDRALAZINE HCL 20 MG/ML VIAL IV SCH (21:49)
[2022-04-18] VITALS (39 sets, daily range): BP systolic 78–233; BP diastolic 10–95
[2022-04-18] MEDS: PROPOFOL IV EMULSION 10MG/ML 100 ML IV PRN ×4 (00:24→07:07)
[2022-04-18] MEDS: INSULIN REGULAR, HUMAN 3ML VL 100 UNIT in SODIUM CHLORIDE 0.9% 99 ML IV SCH ×4 (00:55→11:11)
[2022-04-18] MEDS: LABETALOL HCL 5 MG/ML 20ML VIAL IV PRN ×2 (01:51→08:36)
[2022-04-18] MEDS: FUROSEMIDE INJ 100 MG in SODIUM CHLORIDE 0.9% 90 ML IV SCH (04:22)
[2022-04-18] MEDS: SODIUM CHLORIDE 0.9% 250ML IRRIG IR SCH (05:32)
[2022-04-18] MEDS: HYDRALAZINE HCL 20 MG/ML VIAL IV SCH ×2 (05:44→13:47)
[2022-04-18 07:06] LABS: BASOPHILS % 0.3 % (0.0-1.0); EOSINOPHILS # (AUTO) 0.1 (0.0-0.4); HEMOGLOBIN 10.7 g/dL (14.0-18.0); LYMPHOCYTES # (AUTO) 0.4 (1.0-3.2); LYMPHOCYTES % 5.9 % (18.0-39.1); MEAN CORPUSCULAR HEMOGLOBIN 30.9 pg (28-32); MEAN CORPUSCULAR HGB CONC 31.5 g/dL (31-35); MEAN CORPUSCULAR VOLUME 98.3 fL (81-99); MONOCYTES # (AUTO) 0.7 (0.2-0.8); NEUTROPHILS # (AUTO) 5.6 (2.1-6.9); NEUTROPHILS % 80.6 % (38.7-80.0); PLATELET COUNT 243 x10e3/uL (140-360); RED BLOOD COUNT 3.46 x10e6/uL (4.3-5.7); RED CELL DISTRIBUTION WIDTH 14.6 % (11.7-14.4)
[2022-04-18 07:22] LABS: ALBUMIN 1.7 g/dL (3.5-5.0); ALBUMIN/GLOBULIN RATIO 0.4 (0.8-2.0); ANION GAP 13.9 mmol/L (8-16); CREATININE, SERUM 1.99 mg/dL (0.72-1.25); POTASSIUM 3.9 mmol/L (3.5-5.1)
[2022-04-18] MEDS: MUPIROCIN 2% OINT 22 GM TUBE TOP SCH (08:36)
[2022-04-18] MEDS ORDERED: HYDRALAZINE HCL 20 MG/ML VIAL IV PRN (09:30)
[2022-04-18] MEDS: CIPROFLOXACIN 400 MG/D5W 200ML 200 ML IV SCH (09:40)
[2022-04-18] MEDS: Vancomycin IV 1 GM in SODIUM CHLORIDE 0.9% 250ML 250 ML IV SCH (09:40)
[2022-04-18] MEDS: NYSTATIN 15 GM POWDER UD BTL TOP SCH (09:41)
[2022-04-18] MEDS ORDERED: HYDRALAZINE HCL 20 MG/ML VIAL IV ONE (10:00)
[2022-04-18] MEDS ORDERED: ALBUTEROL SULF 0.083% NEB SOLN 3 ML NEB NEB PRN (10:45)
[2022-04-18] MEDS ORDERED: NON-FORMULARY MEDICATION IV SCH (11:15)
[2022-04-18] MEDS ORDERED: NICARDIPINE 20MG/200ML PREMIX 200 ML IV SCH (11:45)
[2022-04-18] MEDS ORDERED: METHYLPREDNISOLONE SOD SUCC 125 MG/2ML VIAL IV ONE (12:15)
[2022-04-18] MEDS ORDERED: EPINEPHRINE 2.25% INH NEBU SOL 0.5 ML VIAL INH ONE (12:18)
[2022-04-18 12:20] LABS: ABG HCO3 28 mmol/L (22-26); ABG PCO2 50 mmHg (35-45); ABG PH 7.36 (7.35-7.45); ABG PO2 110 mmHg (80-105); ABG TCO2 30
[2022-04-18] MEDS ORDERED: ATROPINE SULFATE 0.1 MG/ML 10ML SYR ONE (12:20)
[2022-04-18] MEDS ORDERED: WATER STERILE 10 ML VIAL ONE (12:20)
[2022-04-18] MEDS ORDERED: AMIODARONE HCL INJ 150MG/3ML ONE (12:20)
[2022-04-18] MEDS ORDERED: SODIUM BICARBONATE 8.4% INJ 50 ML SYR ONE (12:20)
[2022-04-18] MEDS ORDERED: SODIUM CHLORIDE FLUSH 10 ML SYR ONE (12:20)
[2022-04-18] MEDS ORDERED: AMIODARONE 900MG 900 MG/500 ML BAG IV ONE (12:20)
[2022-04-18] MEDS ORDERED: ETOMIDATE 2 MG/ML 10 ML INJ IV ONE (12:20)
[2022-04-18] MEDS ORDERED: MIDAZOLAM HCL 2 MG/2 ML VIAL ONE (12:20)
[2022-04-18] MEDS ORDERED: VECURONIUM BROMIDE FOR INJ 20 MG VIAL ONE (12:20)
[2022-04-18] MEDS ORDERED: SUCCINYLCHOLINE CHLORIDE 20 MG/ML 10ML VIAL ONE (12:20)
[2022-04-18] MEDS ORDERED: EPINEPHRINE HCL SYRINGE ONE (12:20)
[2022-04-18] MEDS ORDERED: NOREPINEPHRINE 8 MG/D5W 250 ML 250 ML ONE (13:22)
[2022-04-18 13:30] LABS: ABG PH 7.11 (7.35-7.45)
[2022-04-18 13:31] LABS: ABG HCO3 22 mmol/L (22-26); ABG PCO2 68 mmHg (35-45); ABG PO2 58 mmHg (80-105); ABG TCO2 24
[2022-04-18] MEDS ORDERED: NOREPINEPHRINE 8 MG/D5W 250 ML 250 ML IV SCH (13:45)
[2022-04-18] MEDS ORDERED: VASOPRESSIN 60 UNIT in DEXTROSE 5% 50ML 57 ML IV SCH (13:45)
[2022-04-18 15:35] LABS: ABG HCO3 28 mmol/L (22-26); ABG PCO2 45 mmHg (35-45); ABG PO2 137 mmHg (80-105); ABG TCO2 29
[2022-04-18] MEDS ORDERED: CENTRAL TPN FORMULA 1 BAG IV SCH (20:00)
== END 2022-04-18 14:49 | disposition expired | DRG 987 ==
LOC: OR 05:19 → PACU V 07:51 → MED/SURG2 12:55 → ICU 04-09 12:02 → IMCU 04-18 22:00 → ICU 04-18 22:00 → UNDODISIN 04-19 15:00
PROVIDERS: ADMIT Internal Medicine; ATTEND Internal Medicine
PROC: 0DB64Z3 Excision of Stomach, Percutaneous Endoscopic Approach, Vertical (ICD-10-PCS; principal; 2022-04-08 07:43)
PROC: 02HV33Z Insertion of Infusion Device into Superior Vena Cava, Percutaneous Approach (ICD-10-PCS; 2022-04-09)
PROC: 0BH17EZ Insertion of Endotracheal Airway into Trachea, Via Natural or Artificial Opening (ICD-10-PCS; 2022-04-10)
PROC: 5A1955Z Respiratory Ventilation, Greater than 96 Consecutive Hours (ICD-10-PCS; 2022-04-10)
PROC: 02HV33Z Insertion of Infusion Device into Superior Vena Cava, Percutaneous Approach (ICD-10-PCS; 2022-04-17)
PROC: 5A1D70Z Performance of Urinary Filtration, Intermittent, Less than 6 Hours Per Day (ICD-10-PCS; 2022-04-17)
PROC: 5A0935A Assistance with Respiratory Ventilation, Less than 24 Consecutive Hours, High Flow/Velocity Cannula (ICD-10-PCS; 2022-04-18)
PROC: 3E043XZ Introduction of Vasopressor into Central Vein, Percutaneous Approach (ICD-10-PCS; 2022-04-18)
PROC: 5A12012 Performance of Cardiac Output, Single, Manual (ICD-10-PCS; 2022-04-18)
DX: E66.2 Morbid (severe) obesity with alveolar hypoventilation (principal); A41.9 Sepsis, unspecified organism; I50.33 Acute on chronic diastolic (congestive) heart failure; J96.02 Acute respiratory failure with hypercapnia; J96.01 Acute respiratory failure with hypoxia; J15.6 Pneumonia due to other Gram-negative bacteria; R65.21 Severe sepsis with septic shock; I13.0 Hypertensive heart and chronic kidney disease with heart failure and stage 1 through stage 4 chronic kidney disease, or unspecified chronic kidney disease; N17.9 Acute kidney failure, unspecified; E87.29 Other acidosis; L03.311 Cellulitis of abdominal wall; I24.9 Acute ischemic heart disease, unspecified; L03.115 Cellulitis of right lower limb; E44.0 Moderate protein-calorie malnutrition; Z68.41 Body mass index [BMI] 40.0-44.9, adult; I46.9 Cardiac arrest, cause unspecified; Z89.612 Acquired absence of left leg above knee; E87.5 Hyperkalemia; E11.51 Type 2 diabetes mellitus with diabetic peripheral angiopathy without gangrene; Z79.4 Long term (current) use of insulin; I11.0 Hypertensive heart disease with heart failure; E11.22 Type 2 diabetes mellitus with diabetic chronic kidney disease; N18.30 Chronic kidney disease, stage 3 unspecified; B96.89 Other specified bacterial agents as the cause of diseases classified elsewhere; I87.2 Venous insufficiency (chronic) (peripheral)
CPT/HCPCS: 0223U; 31500; 36415; 36569; 36600; 43752; 71045; 74018; 74470; 76604; 80048; 80053; 80076; 80202; 81001; 82805; 82948; 83605; 83735; 83880; 84100; 84132; 84134; 84478; 85025; 86706; 87040; 87071; 87186; 87205; 87340; 92950; 93005; 93306; 93926; 93971; 94003; 94660; 94799; 96360; 99252; C1713; J0171; J0330; J0360; J0456; J0692; J1644; J1650; J1815; J1817; J1940; J2001; J2250; J2270; J2310; J2405; J2765; J2930; J3010; J3370; J7030; J7050; J7121; J7799; P9047